=== PATIENT | male | born 1965 | race Caucasian/White ===

== ENCOUNTER 2019-06-24 08:26 | Emergency (ER) | payer OTHER ==
[~2019-06-24] VITALS: Ht 175.3 cm; Wt 95.5 kg
[~2019-06-24 08:26] MED LIST: CLONAZEPAM0.25 MG/TA PO; DIOVAN40 MG PO; MULTI-DAY VITAM1 TAB PO; ULTRAM50 MG PO
[2019-06-24 08:32] VITALS: Ht 175.3 cm; Wt 95.5 kg
[2019-06-24] MEDS ORDERED: GLUCOSAMINE HC500 MG (08:33)
[2019-06-24] MEDS ORDERED: LIPITOR40 MG PO (08:34)
[2019-06-24 09:06] LABS: BASOPHILS 0.2 % (0-2); EOSINOPHILS 1.1 % (0-7); HEMATOCRIT 41.7 % (42.0-54.0); HEMOGLOBIN 14.1 g/dL (13.5-17.5); IMMATURE GRANULOCYTES 0.2 % (0-5); LYMPHOCYTES 15.9 % (15-50); MCH 31.8 pg (26.0-34.0); MCHC 33.8 g/dL (31.0-37.0); MCV 94.1 fL (80.0-100.0); MEAN PLATELET VOLUME 8.7 fL (7.4-10.4); MONOCYTES 6.8 % (2-11); NEUTROPHILS 75.8 % (40-80); PLATELET COUNT 231 10x3/uL (130-400); RBC 4.43 10x6/uL (4.20-6.10); RDW 12.5 % (11.5-14.5); WBC 9.7 10x3/uL (4.8-10.8)
[2019-06-24 09:11] LABS: CALC OSMOLALITY 280 mosm/kg (275-300); CALCIUM 8.8 mg/dL (8.5-10.1); CARBON DIOXIDE 30.5 mmol/L (21.0-32.0); CHLORIDE - SERUM 104 mmol/L (98-107); CREATININE - SERUM 0.9 mg/dL (0.6-1.3); GLUCOSE 116 mg/dL (74-106); SODIUM 140 mmol/L (136-145); UREA NITROGEN 15 mg/dL (7-18); eGFR NON AFRICAN AMERICAN > 90 mL/min (90-120)
[2019-06-24 09:18] LABS: APTT 25.8 SECONDS (22.8-39.4); PROTIME 12.7 SECONDS (11.6-15.0)
[2019-06-24 09:30] LABS: ALBUMIN 3.6 g/dL (3.4-5.0); ALKALINE PHOSPHATASE 112 U/L (46-116); ALT (SGPT) 32 U/L (10-68); BILIRUBIN - TOTAL 0.54 mg/dL (0.2-1.3); CKMB 1.2 U/L (0.0-3.6); CREATINE KINASE 132 UL (21-232); MAGNESIUM - SERUM 1.9 mg/dL (1.8-2.4); PROTEIN - SERUM 7.9 g/dL (6.4-8.2); THYROID STIMULATING HORMONE 1.05 uIU/mL (0.36-3.74); TROPONIN-I < 0.017 ng/mL (0.000-0.060)
[2019-06-24 11:01] VITALS: BP 130/74
== END 2019-06-24 11:02 | disposition home or self-care (01) ==
LOC: D.ER 08:26
PROVIDERS: Family Medicine
DX: G93.5 Compression of brain (principal); I10 Essential (primary) hypertension; R55 Syncope and collapse; Z95.0 Presence of cardiac pacemaker; R42 Dizziness and giddiness; M91.11 Juvenile osteochondrosis of head of femur [Legg-Calve-Perthes], right leg